=== PATIENT | male | born 1960 | race African-American/Black ===

== ENCOUNTER → 2019-03-23 | Outpatient (CLI) | payer OTHER ==
[~2019-03-23] MED LIST: UNICOMPLEX M TA1 TA1 PO
== END ==
LOC: CAT 15:18
DX: Z13.6 Encounter for screening for cardiovascular disorders (principal); E78.00 Pure hypercholesterolemia, unspecified; I25.10 Atherosclerotic heart disease of native coronary artery without angina pectoris